=== PATIENT | male | born 1965 | race Caucasian/White ===

== ENCOUNTER 2018-07-31 11:47 | Day surgery (SDC) | payer BC ==
[~2018-07-31 11:47] MED LIST: Buffered Lidocaine 0.9% SYRIN* 5 ML/SYR SYRINGE INTRADERM ONE
[2018-07-31] MEDS ORDERED: Propofol* 10 MG/ML 20 ML BTL IV PUSH ONE (12:43)
[2018-07-31] MEDS ORDERED: Midazolam* 1 MG/ML 2 ML VIAL (2 MG) ONE (12:43)
[2018-07-31] MEDS ORDERED: fentaNYL* 50 MCG/ML 2 ML VIAL (100 MCG VIAL) ONE (12:43)
[2018-07-31] MEDS ORDERED: Ondansetron INJ* 2 MG/ML VIAL IV PRN (16:12)
[2018-07-31] MEDS ORDERED: Acetaminophen TAB* 325 MG PO PRN (16:12)
[2018-07-31] MEDS ORDERED: Naloxone* 0.4 MG/ML 1 ML VIAL IV PRN (16:12)
[2018-07-31] MEDS ORDERED: Lidocaine 2% PF * 5 ML VIAL ONE (16:40)
[2018-07-31] MEDS ORDERED: Acetaminophen TAB* 325 MG ONE (16:48)
[2018-07-31 17:37] VITALS: BP 135/79
--- NOTE | 2018-08-01 00:02 | PRO ---
CC: PCP DATE OF PROCEDURE: 07/31/18 [facility] PROCEDURE PERFORMED: EGD. INDICATION FOR PROCEDURE: Abnormal barium swallow. MEDICATIONS GIVEN: See Anesthesia record. DESCRIPTION OF PROCEDURE: After the EGD procedure including the risks, benefits , and alternatives, not limited to perforation, surgery, and/or were explained to the patient, written consent was then obtained. See the anesthesia report for drug administration. A bite-block was placed between the teeth. The Olympus gastroscope was then inserted into the patient's mouth and advanced down the upper esophageal sphincter with ease. The esophagus was widely patent with a widely patent GE junction at 40 cm. There was mild mucosal irregularity less than 1 cm. This was biopsied to rule out Santoyo's esophagus. I was able to pass the scope through the lower esophageal sphincter with complete ease and it was widely patent. On retroflexion, there were no masses or lesions around the lower esophageal sphincter to indicate a source of the abnormal barium swallow. On direct view of the stomach, there was a 0.5 cm hypervascular lesion that did bleed on contact with just the scope, unclear if this is an ulcerated polyp versus a possible isolated gastric varix. The bleeding did stop on its own. No samples were taken around the area. The scope was then advanced through a widely patent pylorus to the duodenum and bulb. The bulb was normal in appearance and the C-loop was also normal in appearance without any erosions or ulcerations. The distal duodenum was also normal in appearance. The scope was then withdrawn from the patient. He tolerated the procedure well and returned to the recovery room in stable condition. IMPRESSION: 1. Complete upper endoscopy into the duodenum. 2. Widely patent lower esophageal sphincter. No cause for abnormality on barium swallow. 3. 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 RECOMMENDATIONS: We would consider referring him to tertiary care center for possible EUS of this lesion to evaluate if it is truly just an hypervascular polyp or if it is an isolated gastric varix. We would consider a Doppler ultrasound to rule out splenic vein thrombosis and we would also consider a manometry study to formally evaluate for esophageal dysmotility. He needs to d/ c his etoh which could be exacerbating his symptoms. [id number]/[facility] #: [id number] [facility]
== END 2018-07-31 17:42 | disposition home or self-care (01) ==
LOC: OR 11:47
PROVIDERS: ATTEND Internal Medicine Gastroenterology
DX: K22.0 Achalasia of cardia (principal); R63.4 Abnormal weight loss; K21.0 Gastro-esophageal reflux disease with esophagitis; I10 Essential (primary) hypertension; E11.9 Type 2 diabetes mellitus without complications; E78.2 Mixed hyperlipidemia; F10.20 Alcohol dependence, uncomplicated; I25.10 Atherosclerotic heart disease of native coronary artery without angina pectoris; G20 Parkinson's disease; J45.909 Unspecified asthma, uncomplicated; Z79.84 Long term (current) use of oral hypoglycemic drugs
CPT/HCPCS: 88305; A9270-GY; J2250; J2704; J3010

== ENCOUNTER 2021-01-30 06:01 | Observation (INO) ==
[~2021-01-30 06:01] MED LIST changes: -Buffered Lidocaine 0.9% SYRIN* 5 ML/SYR SYRINGE INTRADERM ONE; +Buffered Lidocaine 1% SYRIN 1 ml INTRADERM ONE; +Lactated Ringers 1000 ml BAG 1,000 ML IV SCH; +Sodium Citrate/Citric Acid LIQ 15 ML UDC PO ONE
[2021-01-30] MEDS ORDERED: Sodium Citrate/Citric Acid LIQ 15 ML UDC ONE (06:28)
[2021-01-30] MEDS ORDERED: ceFAZolin 2 GM PREMIX 2 GM/50 ML BAG ONE (06:28)
[2021-01-30] MEDS ORDERED: Midazolam 2 mg/2 ml VIAL 1 mg/ml 2 ml VIAL (2 mg) ONE ×2 (06:54→07:34)
[2021-01-30] MEDS ORDERED: Propofol 10 MG/ML 20 ML BTL ONE ×3 (07:03→09:48)
[2021-01-30] MEDS ORDERED: Bupivacaine 0.25% EPI 200,000 30 ML SDV ONE (07:24)
[2021-01-30] MEDS ORDERED: Lidocaine 2% PF 5 ML VIAL ONE (07:47)
[2021-01-30] MEDS ORDERED: EPHEDrine (Pressors) 50 MG/ML VIAL ONE (07:54)
[2021-01-30] MEDS ORDERED: fentaNYL 100 mcg/2 ml 50 MCG/ML VIAL ONE (08:07)
[2021-01-30] MEDS ORDERED: Ketamine HCL 50 mg/ml 10 ml VIAL (500 MG) ONE (08:08)
[2021-01-30] MEDS ORDERED: Vancomycin 1,000 MG VIAL ONE (09:09)
[2021-01-30] MEDS ORDERED: HYDROmorphone 1 MG/1 ML SYRINGE IV PRN (09:45)
[2021-01-30] MEDS ORDERED: Ondansetron 4 mg VIAL 2 MG/ML 2 ml VIAL IV PRN ×2 (09:45→10:26)
[2021-01-30] MEDS ORDERED: fentaNYL 100 mcg/2 ml 50 MCG/ML VIAL IV PRN (09:45)
[2021-01-30] MEDS ORDERED: Naloxone 0.4 mg VIAL 0.4 mg/ml 1 ml VIAL IV PRN (09:45)
[2021-01-30] MEDS ORDERED: diPHENhydraMINE 25 mg TAB PO PRN (10:26)
[2021-01-30] MEDS ORDERED: Magnesium Hydroxide LIQ 30 ML UDC PO PRN (10:26)
[2021-01-30] MEDS ORDERED: Morphine 2 MG/ML SYRINGE IV PRN (10:26)
[2021-01-30] MEDS ORDERED: Lactulose 30 ml UDC PO PRN (10:26)
[2021-01-30] MEDS ORDERED: Ondansetron ODT 4 mg TAB 4 MG TAB PO PRN (10:26)
[2021-01-30] MEDS ORDERED: diPHENhydraMINE IV 50 MG/ML 1 ml VIAL (BENADRYL) IV PRN (10:26)
[2021-01-30] MEDS ORDERED: Albuterol/Ipratropium RESP(NF) MDI (Combivent Respimat) INH PRN (10:43)
[2021-01-30] MEDS ORDERED: Carbidopa/Levodop 25/100 MG TAB PO PRN (10:43)
[2021-01-30] MEDS ORDERED: Bismuth Subsalicylate 524 MG/30 ML BTL PO PRN (10:43)
[2021-01-30] MEDS ORDERED: Dextrose 50% Syringe 50 ml 25 GM/50 ML SYRINGE IV PUSH PRN (11:21)
[2021-01-30] MEDS ORDERED: Albuterol/Ipratropium NEB.SOL (2.5/0.5 MG) 3 ML NEB.SOLN INH PRN (12:18)
[2021-01-30] MEDS: Lactated Ringers 1000 ml BAG 1,000 ML IV SCH (12:20)
[2021-01-30] MEDS ORDERED: Albuterol HFA INHALER 8 gm MDI INH PRN (12:59)
[2021-01-30] MEDS: Carbidopa/Levodop CR 50/200 TAB.CR PO SCH ×3 (14:31→22:38)
[2021-01-30] MEDS: ceFAZolin 1 GM ADVAN 1 GM in NS 0.9% 50 ML 50 ML IVPB SCH (15:55)
[2021-01-30] MEDS: Magnesium Hydroxide LIQ 30 ML UDC PO SCH (22:41)
[2021-01-31] MEDS: Lactated Ringers 1000 ml BAG 1,000 ML IV SCH ×2 (01:20→11:00)
[2021-01-31] MEDS: ceFAZolin 1 GM ADVAN 1 GM in NS 0.9% 50 ML 50 ML IVPB SCH ×2 (01:22→07:42)
[2021-01-31 06:28] LABS: Hematocrit 30 % (42-52); Hemoglobin 10.2 g/dL (14.0-18.0); Mean Platelet Volume 7.4 fL (7.4-10.4); Platelet Count 116 10^3/uL (150-450)
[2021-01-31 06:44] LABS: Calcium 8.6 mg/dL (8.6-10.3); EGFR African American 143.5 (>60); EGFR Non-African American 118.6 (>60); Potassium 4.1 mmol/L (3.5-5.0)
[2021-01-31] MEDS ORDERED: NS 0.9% 1000 ml BAG 1,000 ML IV ONE (08:12)
[2021-01-31] MEDS ORDERED: Lactated Ringers 1000 ml BAG 1,000 ML IV ONE (08:18)
[2021-01-31] MEDS: Carbidopa/Levodop CR 50/200 TAB.CR PO SCH ×2 (08:22→12:22)
[2021-01-31] MEDS: Magnesium Hydroxide LIQ 30 ML UDC PO SCH (08:23)
[2021-01-31] MEDS ORDERED: Vitamin THERAPEUTIC TAB PO SCH (09:00)
[2021-01-31] MEDS ORDERED: Multivitamins/Minerals TAB PO SCH (09:00)
[2021-01-31] MEDS ORDERED: Senna TAB 8.6 mg TAB PO PRN (12:00)
[2021-01-31 12:24] VITALS: BP 111/52
== END 2021-01-31 15:15 | disposition home or self-care (01) ==
LOC: OR 06:01 → INTOOBSV 12:14 → SSU 12:14
PROVIDERS: ADMIT Orthopaedic Surgery; ATTEND Orthopaedic Surgery